=== PATIENT | female | born 2000 | race Two or more races ===

== ENCOUNTER → 2024-08-27 | Outpatient (CLI) | payer BC, MEDICAID, SELFPAY ==
[2024-08-27 14:08] LABS: Collection Type, Urine Clean Catch
[2024-08-27 15:41] LABS: Amphetamine/Methamp Scrn,U Negative (Negative); Barbiturate Screen,Urine Negative (Negative); Benzodiazepines Screen,Urine Negative (Negative); Benzoylecgonine Screen, Ur Negative (Negative); Fentanyl Screen,Urine Negative (Negative); Opiate Screen,Urine Negative (Negative); THC Screen,Urine Negative (Negative)
[2024-08-27 15:45] LABS: Bacteria,Urine Rare; Bilirubin,Urine Negative (Negative); Blood,Urine Negative (Negative); Color,Urine Yellow (Lt Yel-Yel); Glucose, Urine Trace (Negative); Ketones,Urine Negative (Negative); Leukocyte Esterase,Urine Negative (Negative); Nitrite,Urine Negative (Negative); PH,Urine 6.5 (5.0-7.0); Protein,Urine Negative (Neg - Trace); RBC,Urine 1 /hpf (0-3); Specific Gravity,Urine 1.019 (1.001-1.035); Squamous Epithelial Cell,Urine 9 /hpf (0-5); Urobilinogen,Urine Negative mg/dL (0.0-1.0); WBC,Urine 1 /hpf (0-5)
[2024-08-27 15:55] LABS: Clarity,Urine Hazy (Clear/Hazy)
[2024-08-27 17:23] LABS: BVAG Candida Negative (Negative); Bacterial Vaginosis Markers Negative (Negative); Candida glabrata Negative (Negative); Candida krusei PCR Negative (Negative); Trichomonas Negative (Negative)
== END | disposition home or self-care (01) ==
PROVIDERS: Referring Provider Physician Assistant Medical; Visit Provider Physician Assistant Medical
DX: Z34.81 Encounter for supervision of other normal pregnancy, first trimester (principal); B37.89 Other sites of candidiasis; N76.0 Acute vaginitis; A59.01 Trichomonal vulvovaginitis
CPT/HCPCS: 80307; 81001; 81514; 87086

== ENCOUNTER → 2024-09-02 | Outpatient (CLI) | payer BC, MEDICAID, SELFPAY ==
[2024-09-02 08:26] LABS: Quantiferon-TB* See Sep Rpt
[2024-09-02 09:20] LABS: Basophils % (Auto) 0 % (0-2.5); Eosinophils # (Auto) 0.1 Thou/mm3 (0.0-0.5); Eosinophils % (Auto) 2 % (0-10); Hemoglobin 11.4 g/dL (12.0-16.0); Immature Granulocytes % (Auto) 0 % (0-0); Immature Granulocytes Auto 0.02 Thou/mm3 (0.00-0.00); Lymphocytes # (Auto) 1.2 Thou/mm3 (1.0-4.8); Lymphocytes % (Auto) 16 % (10-50); Mean Corpuscular HGB Conc 34.5 g/dl (31.0-37.0); Mean Corpuscular Hemoglobin 31.8 pg (25.0-35.0); Mean Corpuscular Volume 92 fL (80-100); Monocytes # (Auto) 0.3 Thou/mm3 (0.0-0.8); Monocytes % (Auto) 4 % (0-12); Neutrophils # (Auto) 5.7 Thou/mm3 (1.8-7.7); Neutrophils % (Auto) 77 % (37-80); Nucleated Red Blood Cell % 0 /100 WBC (0); Platelet Count 186 Thou/mm3 (140-440); RDW Standard Deviation 43.3 fL (36.4-46.3); Red Blood Count 3.59 Miln/mm3 (4.00-5.20); White Blood Count 7.4 Thou/mm3 (3.6-11.0)
[2024-09-02 09:28] LABS: Glucose Estimated Average 94 mg/dL (80-131); Hemoglobin A1C 4.9 % Hgb (4.8-6.0)
[2024-09-02 09:42] LABS: Creatinine (Component) 0.5 mg/dL (0.6-1.3); Glucose 92 mg/dL (74-106); eGFR > 60 See Note
[2024-09-02 09:48] LABS: Hepatitis B Surface Antigen Non Reactive (Non React); Rubella, IgG Antibody Reactive (Immune)
[2024-09-02 10:08] LABS: Beta HCG,Quantitative 37216 mIU/mL (<5.0)
[2024-09-04 15:32] LABS: HCV RNA, PCR <15 NOT DETECTED IU/mL
[2024-09-07 08:14] LABS: HCV RNA, PCR Log IU <1.18 NOT DETECTED Log IU/mL; HIV Ag/Ab, 4th Gen NON-REACTIVE
== END | disposition home or self-care (01) ==
PROVIDERS: Referring Provider Physician Assistant Medical; Visit Provider Physician Assistant Medical
DX: Z34.81 Encounter for supervision of other normal pregnancy, first trimester (principal)
CPT/HCPCS: 36415; 82565; 82947; 83036; 84702; 85025; 86480; 86762; 86850; 86900; 86901; 87340; 87389; 87522

== ENCOUNTER → 2024-09-29 | Outpatient (CLI) | payer BC, MEDICAID, SELFPAY | END | disposition home or self-care (01) | LOC: SLDO 14:21 | PROVIDERS: Referring Provider Specialist; Visit Provider Specialist | DX: Z34.82 Encounter for supervision of other normal pregnancy, second trimester (principal) | CPT/HCPCS: 87077; 87086; 87186 ==

== ENCOUNTER 2024-10-02 12:41 | Observation (INO) | payer MEDICAID, SELFPAY ==
[2024-10-02] VITALS (11 sets, daily range): BP systolic 106; BP diastolic 59; PULSE 75–91; RESP 18–98; TEMP 36.7; O2SAT 99–100; BMI 23.0
--- NOTE | 2024-10-02 13:18 | XR_ITS ---
Examination: Complete OB ultrasound greater than 14 weeks Date and time of exam: October 02, 2024 1341 hours INDICATIONS: Pelvic cramping today Findings: Viable intrauterine single fetus with single amniotic sac presentation variable Cardiac motion 152 BPM Placenta anterior grade 1 Umbilical cord insertion seen Amniotic fluid index 10.9 cm Cervix 3.4 cm Right ovary 3.4 cm arterial flow Left ovary 4.3 cm arterial flow. Composite estimated gestational age based on BPD, head circumference, abdominal circumference, femur length is 20 weeks 2 days Estimated weight 365 g. Survey of intracranial anatomy, spinal anatomy, abdominal anatomy, four-chamber heart performed with no abnormalities identified. Impression: Viable intrauterine gestation variable presentation Placenta anterior grade 1 no abruption.
[2024-10-02 13:54] LABS: Collection Type, Urine Clean Catch; RBC,Urine 0 /hpf (0-3)
[2024-10-02 14:55] LABS: Bilirubin,Urine Negative (Negative); Blood,Urine 3+ (Negative); Clarity,Urine Clear (Clear/Hazy); Color,Urine Colorless (Lt Yel-Yel); Glucose, Urine Negative (Negative); Ketones,Urine Negative (Negative); Leukocyte Esterase,Urine Negative (Negative); Nitrite,Urine Negative (Negative); Protein,Urine Negative (Neg - Trace); Specific Gravity,Urine 1.005 (1.001-1.035); Urobilinogen,Urine Negative mg/dL (0.0-1.0)
[2024-10-02 15:31] LABS: Bacteria,Urine Rare; Squamous Epithelial Cell,Urine 1 /hpf (0-5); WBC,Urine 1 /hpf (0-5)
== END 2024-10-02 15:35 | disposition home or self-care (01) ==
PROVIDERS: Admitting Provider Obstetrics & Gynecology; Visit Provider Obstetrics & Gynecology
DX: O26.892 Other specified pregnancy related conditions, second trimester (principal); Z3A.20 20 weeks gestation of pregnancy; R10.2 Pelvic and perineal pain
CPT/HCPCS: 59899; 76805; 81001

== ENCOUNTER 2024-11-28 02:02 | Observation (INO) | payer BC, MEDICAID, SELFPAY ==
[2024-11-28] VITALS (16 sets, daily range): BP systolic 84–101; BP diastolic 49–64; PULSE 70–95; RESP 16–100; TEMP 36.8; O2SAT 100; BMI 24.4
--- NOTE | 2024-11-28 03:40 | XR_ITS ---
Examination: Complete OB ultrasound greater than 14 weeks Date and time of exam: November 28, 2024, 0408 hours INDICATIONS: Labor pelvic contractions beginning 8:00 PM last night, labor evaluation Findings: Viable intrauterine single fetus with single amniotic sac presentation cephalic Cardiac motion 138 BPM Placenta anterior grade 1 Umbilical cord insertion seen Amniotic fluid index 14.3 cm spine maternal right Cervix 1.7 cm Ovaries obscured by bowel gas. Composite estimated gestational age based on BPD, head circumference, abdominal circumference, femur length is 28 weeks 1 day Estimated weight 1162 g. Survey of intracranial anatomy, spinal anatomy, abdominal anatomy, four-chamber heart performed with no abnormalities identified. Impression: Viable intrauterine gestation cephalic presentation.
[2024-11-28 03:59] LABS: Collection Type, Urine Clean Catch; RBC,Urine 0 /hpf (0-3)
[2024-11-28 04:04] LABS: Bilirubin,Urine Negative (Negative); Blood,Urine Negative (Negative); Clarity,Urine Clear (Clear/Hazy); Color,Urine Lt-Yellow (Lt Yel-Yel); Glucose, Urine Negative (Negative); Ketones,Urine Negative (Negative); Leukocyte Esterase,Urine Negative (Negative); Nitrite,Urine Negative (Negative); PH,Urine 7.0 (5.0-7.0); Protein,Urine Negative (Neg - Trace); Specific Gravity,Urine 1.006 (1.001-1.035); Squamous Epithelial Cell,Urine 1 /hpf (0-5); Urobilinogen,Urine Negative mg/dL (0.0-1.0); WBC,Urine < 1 /hpf (0-5)
[2024-11-28] MEDS: RINGERS LACTATED 1000 ML 1,000 ML 999 ML IV (04:21)
--- NOTE | 2024-11-28 04:49 | PRELIM_ITS ---
Obstetric ultrasound. November 28, 2024 0408 hours Clinical history: CONTRACTIONS Comparison: No prior study is available for comparison. Findings: There is a gravid uterus with a live fetus in cephalic presentation of mean gestational age 28 weeks and 1 days (by biometry). cardiac activity is present at a heart rate of 138 beats per minute. The placenta is anterior in location, maturity grade I. There is no evidence of placenta previa or retroplacental hemorrhage. Amniotic fluid is adequate (MIKE = 14.3 cm). Estimated weight is 1162 grams+/- 172 grams. Estimated due date by ultrasound is 02/19/2025. The internal cervical os is closed at the time of examination and cervix measures 1.7 cm. Impression: Gravid uterus with a single live fetus in cephalic presentation of mean gestational age 28 weeks 1 day. Report Electronically Signed By: Jolie Lin 11/28/2024 4:49:14 AM [EST]
[2024-11-28] MEDS: BETAMET ACET/BETAMET NA PH (Celestone) 6 MG/ML VIAL 12 MG IM (07:56)
--- NOTE | 2024-11-28 09:17 | PD.LDNST ---
Documentation for date of: 11/28/24 Antepartum Testing Patient Information Reason for Test: h/o labor and here for contractions and she declined FFN EDC: 02/11/25 Gestational Age (weeks): 29 Gestational Age (days): 2 : 2 Para: 1 Clincal Data Temperature: 98.2 F Blood Pressure: 89/53 Respiratory Rate: 16 Pulse Rate: 87 Non-Stress Test Non-Stress Test Result: Reactive US Results MIKE: 14 EFW: 1162 kg Addendum Addendum Narrative: Patient declined a pelvic exam also . So informed her that she is being managed as at risk for delivery due to prior history she is feeling much better now and will be discharged home on nifedipine 10 mgm po q 8 hours and bed rest and follow up with her new Ob on Saturday she received one dose of betamethasone and will follow up in 24 hours for second dose ED precautions given
== END 2024-11-28 10:50 | disposition home or self-care (01) ==
PROVIDERS: Admitting Provider Obstetrics & Gynecology; Visit Provider Obstetrics & Gynecology
DX: O47.03 False labor before 37 completed weeks of gestation, third trimester (principal); Z3A.28 28 weeks gestation of pregnancy
CPT/HCPCS: 59025; 59899; 76805; 81001; 82731; 96372; J0702; J7120; A9270

== ENCOUNTER 2024-11-29 08:11 | Observation (INO) | payer BC, MEDICAID, SELFPAY ==
[2024-11-29 08:13] VITALS: BP 97/59; PULSE 82; RESP 18; RESP 99; TEMP 36.6; BMI 24.0
[2024-11-29 08:19] VITALS: BP 97/59; PULSE 82
[2024-11-29] MEDS: BETAMET ACET/BETAMET NA PH (Celestone) 6 MG/ML VIAL 12 MG IM (08:48)
== END 2024-11-29 09:05 | disposition home or self-care (01) ==
PROVIDERS: Admitting Provider Obstetrics & Gynecology; Visit Provider Obstetrics & Gynecology
DX: Z34.83 Encounter for supervision of other normal pregnancy, third trimester (principal); Z3A.29 29 weeks gestation of pregnancy
CPT/HCPCS: 59025; 59899; 96372; J0702